=== PATIENT | female | born 1995 | race Caucasian/White ===

== ENCOUNTER 2017-12-03 15:32 | Emergency (ER) | payer BC ==
[2017-12-03 15:32] VITALS: BP 129/74
[2017-12-03] MEDS ORDERED: IV NORMAL SALINE 1,000ML 1,000 ML IV SCH (15:51)
--- NOTE | 2017-12-03 16:15 | PHYS DOC ---
Past History Past Medical History: Diabetes Additional Past Medical Histor: polycystic ovarian disease Smoking: Non-smoker Adult General Chief Complaint Chief Complaint: ABDOMINAL PAIN HPI HPI 22-year-old female patient with history of type 2 diabetes mellitus and polycystic ovarian disease and morbid obesity complaining of gradual onset of right lower quadrant and right flank pain since this morning as a constant and sharp pain with addition to her flank that gradually getting worse. Patient rated her pain 10 over 10 and complaining of 1 episodes of vomiting decrease of urine output without dysuria and hematuria. Patient denies fever and chills, diarrhea and constipation, anorexia, history of the same pain. Patient denies set of right. Review of Systems Review of Systems Constitutional: Denies fever or chills [] Eyes: Denies change in visual acuity, redness, or eye pain [] HENT: Denies nasal congestion or sore throat [] Respiratory: Denies cough or shortness of breath [] Cardiovascular: No additional information not addressed in HPI [] GI: Reports abdominal pain, nausea, vomiting, denies bloody stools or diarrhea [ ] : Denies dysuria or hematuria [] Musculoskeletal: Denies back pain or joint pain [] Integument: Denies rash or skin lesions [] Neurologic: Denies headache, focal weakness or sensory changes [] Endocrine: Denies polyuria or polydipsia [] All other systems were reviewed and found to be within normal limits, except as documented in this note. Current Medications Current Medications Current Medications Medications (Trade) Dose Ordered Sig/Deyanira Start Time Stop Time Status Last Admin Dose Admin Sodium Chloride 1,000 ml @ 1,000 mls/hr Q1H 12/03/17 15:51 12/03/17 16:50 UNV Physical Exam Physical Exam Constitutional: Well developed, well nourished, moderate distress, non-toxic appearance. [] HENT: Normocephalic, atraumatic, oropharynx dry, no oral exudates, nose normal. [] Eyes: PERRLA, EOMI, conjunctiva normal, no discharge. [] Neck: Normal range of motion, no tenderness, supple, no stridor. [] Cardiovascular:Heart rate regular rhythm, no murmur [] Lungs & Thorax: Bilateral breath sounds clear to auscultation [] Abdomen: Bowel sounds normal, soft, no tenderness, no masses, no pulsatile masses. [] Skin: Warm, dry, no erythema, no rash. [] Back: No tenderness, no CVA tenderness. [] Extremities: No tenderness, no cyanosis, no clubbing, ROM intact, no edema. [] Neurologic: Alert and oriented X 3, normal motor function, normal sensory function, no focal deficits noted. [] Psychologic: Affect anxious, judgement normal, mood normal. [] Current Patient Data Lab Results Laboratory Tests Test 12/03/17 15:43 Glucose (Fingerstick) 112 mg/dL (70-99) H EKG EKG [] Radiology/Procedures Radiology/Procedures [][address] [address] IMAGING REPORT Signed PATIENT: MIKEY BANKS ACCOUNT: [id number] : 1995 LOCATION: ER AGE: 22 SEX: F EXAM STATUS: REG ER ORD. PHYSICIAN: KARL SANDOVAL MD REASON: Right lower abdomen and flank pain with nausea and vomiting x 2 d PROCEDURE: CT ABDOMEN PELVIS WO CONTRAST CT of the abdomen and pelvis without contrast, 12/03/2017: HISTORY: Right lower quadrant pain Noncontrast scans were obtained with multiplanar reconstructions produced. No intrarenal calculi are identified. The right renal pelvis is slightly prominent compared to the left. The right ureter ureter is mildly dilated. It is not clearly delineated distally. There is a 2 x 3 mm radiopacity in the lower pelvis on the right which probably lies in the distal right ureter. A couple of other lower pelvic calcifications are compatible with phleboliths. The urinary bladder is collapsed and contains only small amount of urine. The left renal collecting system and left ureter are of normal caliber. The liver is enlarged and demonstrates decreased density in a diffuse pattern most compatible with fatty change. No dense gallstones or pericholecystic edema is seen. The gallbladder is mildly distended. The pancreas is unremarkable. The spleen is of normal size. The abdominal aorta is unremarkable. The infrarenal inferior vena cava lies on the left, which is a normal variant. No abdominal or pelvic adenopathy is seen. The uterus is unremarkable. The bowel loops are not dilated. No free fluid or free air is evident in the abdomen or pelvis. IMPRESSION: 1. Probable small partially obstructing distal right ureteral calculus. 2. Hepatomegaly with hepatic steatosis. Electronically signed by: Peter Ken MD (12/03/2017 4:32 PM) [facility] DICTATED AND SIGNED BY: PETER KEN MD DATE: 12/03/17 1621 CC: KARL SANDOVAL MD; KRISTA ALONSO ~ Course & Med Decision Making Course & Med Decision Making Pertinent Labs and Imaging studies reviewed. (See chart for details) [] Dragon Disclaimer Dragon Disclaimer This electronic medical record was generated, in whole or in part, using a voice recognition dictation system. Departure Departure: Impression: Primary Impression: Renal colic on right side Additional Impressions: Ureterolithiasis Nausea and vomiting History of diabetes mellitus Morbid obesity Disposition: HOME, SELF-CARE (at 1752) Condition: IMPROVED Referrals: KRISTA ALONSO (PCP) ADIEL REYNOLDS MD Patient Instructions: Diet for Kidney Stones, Kidney Stones Additional Instructions: Drink plenty of liquids Follow-up with your primary care physician in 3-5 days Return to ER if not getting better Strain all of your urine Follow-up with urology doctor in 2 or 3 days Scripts Acetaminophen With Codeine (TYLENOL WITH CODEINE #3 TABLET) 1 Each Tablet 1 TAB PO Q6HRS, #15 TAB Prov: KARL SANDOVAL MD 12/03/17 Ondansetron (ZOFRAN ODT) 4 Mg Tab.rapdis 1 TAB SL Q8HRS, #15 TAB Prov: KARL SANDOVAL MD 12/03/17 Tamsulosin Hcl (FLOMAX) 0.4 Mg Cap.er.24h 1 CAP PO DAILY, #15 CAP 11 Refills Prov: KARL SANDOVAL MD 12/03/17 Problem Qualifiers KARL SANDOVAL MD Dec 03, 2017 16:14
[2017-12-03] MEDS ORDERED: ONDANSETRON PF 4 MG/2 ML VIAL. ONE (16:28)
[2017-12-03] MEDS ORDERED: ONDANSETRON PF 4 MG/2 ML VIAL. IV ONE (16:30)
--- NOTE | 2017-12-03 16:35 | RAD ---
CT of the abdomen and pelvis without contrast, 12/03/2017: HISTORY: Right lower quadrant pain Noncontrast scans were obtained with multiplanar reconstructions produced. No intrarenal calculi are identified. The right renal pelvis is slightly prominent compared to the left. The right ureter ureter is mildly dilated. It is not clearly delineated distally. There is a 2 x 3 mm radiopacity in the lower pelvis on the right which probably lies in the distal right ureter. A couple of other lower pelvic calcifications are compatible with phleboliths. The urinary bladder is collapsed and contains only small amount of urine. The left renal collecting system and left ureter are of normal caliber. The liver is enlarged and demonstrates decreased density in a diffuse pattern most compatible with fatty change. No dense gallstones or pericholecystic edema is seen. The gallbladder is mildly distended. The pancreas is unremarkable. The spleen is of normal size. The abdominal aorta is unremarkable. The infrarenal inferior vena cava lies on the left, which is a normal variant. No abdominal or pelvic adenopathy is seen. The uterus is unremarkable. The bowel loops are not dilated. No free fluid or free air is evident in the abdomen or pelvis. IMPRESSION: 1. Probable small partially obstructing distal right ureteral calculus. 2. Hepatomegaly with hepatic steatosis. Electronically signed by: Peter Ken MD (12/03/2017 4:32 PM) [facility]
[2017-12-03] MEDS ORDERED: MORPHINE SULFATE 4 MG/ML DISP.SYRIN. IV ONE (16:45)
[2017-12-03 17:26] LABS: BASO % 0 % (0-3); EOS # 0.1 x10^3/uL (0.0-0.7); EOS % 1 % (0-3); HEMATOCRIT 35.5 % (36.0-47.0); HEMOGLOBIN 11.1 g/dL (12.0-15.5); LYMPH # 1.8 x10^3/uL (1.0-4.8); LYMPH % 19 % (24-48); MEAN CORPUSCULAR HEMOGLOBIN 21 pg (25-35); MEAN CORPUSCULAR HGB CONC 31 g/dL (31-37); MEAN CORPUSCULAR VOLUME 67 fL (79-100); MONO # 0.5 x10^3/uL (0.0-1.1); MONO % 6 % (0-9); NEUT # 6.9 x10^3uL (1.8-7.7); NEUT % 74 % (31-73); PLATELET COUNT 288 x10^3/uL (140-400); RED BLOOD COUNT 5.32 x10^6/uL (3.50-5.40); WHITE BLOOD COUNT 9.3 x10^3/uL (4.0-11.0)
[2017-12-03 17:41] LABS: ALBUMIN 3.1 g/dL (3.4-5.0); ALBUMIN/GLOBULIN RATIO 0.7 (1.0-1.7); CALCIUM 8.4 mg/dL (8.5-10.1); CREATININE 0.9 mg/dL (0.6-1.0); GFR 76.9; POTASSIUM 3.6 mmol/L (3.5-5.1); TOTAL BILIRUBIN 0.3 mg/dL (0.2-1.0); TOTAL PROTEIN 7.3 g/dL (6.4-8.2)
[2017-12-03] MEDS ORDERED: ACETAMINOPHEN/CODEINE 300/30MG 4TABLET STARTPACK. PO ONE ×2 (17:45→17:46)
[2017-12-03] MEDS ORDERED: TAMSULOSIN 0.4 MG CAP.ER.24H. PO ONE ×2 (17:45→17:46)
[2017-12-03 17:47] LABS: BILIRUBIN,URINE NEG (NEG); CLARITY,URINE CLEAR; COLOR,URINE YELLOW
[2017-12-03 17:48] LABS: GLUCOSE,URINE NEG (NEG); NITRITE,URINE NEG (NEG); UROBILINOGEN,URINE 0.2 mg/dL (0.2 mg/dL)
[2017-12-03] MEDS ORDERED: ONDA4TAB10 SL (17:56)
[2017-12-03] MEDS ORDERED: TAMS0.4C97 PO (17:56)
[2017-12-03] MEDS ORDERED: ACET-704 PO (17:56)
[2017-12-03 22:27] LABS: PLT ESTIMATE ADEQUATE (ADEQUATE)
[2017-12-03 22:29] LABS: HYPOCHROMIA SLIGHT
[2017-12-03 22:31] LABS: OVALOCYTES FEW; POLYCHROMASIA PRESENT
[2017-12-03 22:32] LABS: ANISOCYTOSIS PRESENT
[2017-12-03 22:33] LABS: MICROCYTOSIS SLIGHT
== END 2017-12-03 18:00 | disposition home or self-care (01) ==
LOC: ER 15:32
DX: N20.2 Calculus of kidney with calculus of ureter (principal); E11.8 Type 2 diabetes mellitus with unspecified complications; E28.2 Polycystic ovarian syndrome; E66.01 Morbid (severe) obesity due to excess calories
CPT/HCPCS: 36415; 74176; 80053; 81003; 81025; 82947; 83690; 85025; 96361; 96374; 96375; 99285; J2270; J2405; J7030

== ENCOUNTER 2019-02-18 18:06 | Emergency (ER) | payer OTHER, BC ==
[~2019-02-18] VITALS: Ht 165.1 cm; Wt 132.0 kg
[~2019-02-18 18:06] MED LIST: ACET-704 PO; ONDA4TAB10 SL; TAMS0.4C97 PO
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
[2019-02-18] MEDS ORDERED: NAPROXEN 500 MG TABLET PO ONE (18:45)
[2019-02-18] MEDS ORDERED: ONDANSETRON ODT 4 MG TAB.RAPDIS PO ONE (18:45)
[2019-02-18 19:37] VITALS: BP 138/94
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
== END 2019-02-18 19:53 | disposition home or self-care (01) ==
LOC: ER 18:06
DX: M54.2 Cervicalgia (principal); M54.5 Low back pain; E11.9 Type 2 diabetes mellitus without complications; V49.59XA Passenger injured in collision with other motor vehicles in traffic accident, initial encounter; Y93.89 Activity, other specified; Y92.488 Other paved roadways as the place of occurrence of the external cause; Y99.8 Other external cause status
CPT/HCPCS: 72040; 99284; Q0162

== ENCOUNTER 2020-11-22 22:11 | Emergency (ER) | payer BC, OTHER ==
[~2020-11-22] VITALS: Ht 165.1 cm; Wt 118.0 kg
[2020-11-22 22:11] VITALS: BP 141/92
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
[2020-11-23] MEDS ORDERED: ACETAMINOPHEN 500 MG TABLET PO ONE (00:30)
== END 2020-11-23 00:15 | disposition home or self-care (01) ==
LOC: ER 22:11
DX: S00.03XA Contusion of scalp, initial encounter (principal); S10.93XA Contusion of unspecified part of neck, initial encounter; E11.9 Type 2 diabetes mellitus without complications; Y08.89XA Assault by other specified means, initial encounter; Y93.89 Activity, other specified; Y92.89 Other specified places as the place of occurrence of the external cause; Y99.8 Other external cause status
CPT/HCPCS: 99282